=== PATIENT | female | born 1980 | race Hispanic/Latino ===

== ENCOUNTER 2019-12-03 16:12 | Inpatient (IN) | payer OTHER ==
[2019-12-03 16:33] LABS: #Lymphocytes 2.1 thou/uL (1.20-3.40); #Monocytes 0.4 thou/uL (0.11-0.59); #Neutrophils 5.5 thou/uL (1.40-6.50); %Basophils 0.3 % (0.0-1.0); %Eosinophils 0.6 % (0.0-10.0); %Lymphocytes 25.9 % (21.0-51.0); %Monocytes 5.3 % (0.0-10.0); %Neutrophils 67.9 % (42.0-75.0); Hemoglobin 10.3 g/dL (12.0-16.0); Mean Corpuscular HGB CONC 34.5 g/dL (32.0-36.0); Mean Corpuscular Hemoglobin 31.9 pg (27.0-31.0); Mean Corpuscular Volume 92.7 fL (78.0-98.0); Mean Platelet Volume 7.7 fL (7.4-10.4); Platelet Count 176 thou/uL (130-400); RBC Distribution Width 12.6 % (11.5-14.5); Red Blood Cell (RBC) Count 3.23 mill/uL (4.20-5.40); White Blood Cell (WBC) Count 8.1 thou/uL (4.8-10.8)
[2019-12-03 16:37] LABS: PTT 27.1 sec (22.9-36.1); Prothrombin Time 13.3 sec (12.0-14.7)
--- NOTE | 2019-12-03 16:40 | CT ---
CT head noncontrast HISTORY: Left-sided weakness. FINDINGS: A small hypodense focus is present within the right frontal white matter on image #21. Centered at the right parietal level is the area of most notable, yet still very subtle wedge-shaped decreased density extending through the cortical white matter. A tiny focus of increased density at the right basal ganglia is favored to represent dystrophic calci fication. There is no significant mass effect or shift of midline structures. Minimal mucosal thickening and fluid in the left maxillary sinus. IMPRESSION : Subtle abnormalities in the right parietal lobe and right frontal white matter concerning for an acut e ischemic event in the distribution of the right middle cerebral artery. Given the patient's symptoms, further evaluation is warranted. Please consider MRI for better characterization. Findings were called to Dr. Warren in the emergency department at 1633 hours Code CR.
[2019-12-03 16:44] LABS: ALT (SGPT) 26 U/L (8-55); AST (SGOT) 16 U/L (5-34); Albumin 4.3 g/dL (3.5-5.0); Alkaline Phosphatase 77 U/L (40-110); Anion Gap 13 mmol/L (10-20); BUN (Urea Nitrogen) 7 mg/dL (7.0-18.7); Bilirubin, Total 0.4 mg/dL (0.2-1.2); CK (CPK) 49 U/L (29-168); Calc. Creatinine Clearance 0 mL/min (70-130); Calcium 8.8 mg/dL (7.8-10.44); Carbon Dioxide 21 mmol/L (22-29); Chloride 109 mmol/L (98-107); Estimated GFR-MDRD 87; Globulin 2.6 g/dL (2.4-3.5); Glucose 87 mg/dL (70-105); Protein, Total 6.9 g/dL (6.0-8.3); Sodium 139 mmol/L (136-145)
--- NOTE | 2019-12-03 17:26 | CT ---
EXAM: CT ANGIOGRAM OF THE HEAD AND NECK CT perfusion INDICATION: Level 2 stroke. Left-sided numbness. COMPARISON: None TECHNIQUE: CT angiogram of the head and neck are performed in the axial plane. Three-dimensional reformatted renetta ges are submitted for interpretation. After performing the angiogram of the head and neck, perfusion CT was performed. FINDINGS: CTA OF THE HEAD WITH AND WITHOUT CONTRAST: POSTCONTRAST CT OF BRAIN: Subtle white matter hypodensities in the right stroud radiata subtle loss of haddad-white matter differ entiation in the right frontal lobe, near the vertex. Postcontrast soft tissue neck CT: Aerodigestive tract:Aerodigestive tract is patent. No mucosal abnormality. Sinuses: Adequate aeration. Orbits: Bilateral ocular lenses are appropriately located. Both globes are intact. Retrobulbar fat is preserved. Symmetric attenuation the optic nerves and ocular rectus muscles. Salivary glands:Symmetric attenuation Thyroid gland: Unremarkable Lymph nodes: No evidence of lymphadenopathy by size criteria. Paraspinal muscles: Symmetric attenuation of the sternocleidomastoid muscles. Appropriate attenuation of the paraspinal muscles. Cervical spine:Vertebral body height is maintained. No fracture. No significant central canal stenosi s or significant neural foraminal narrowing. Limited evaluation by technique. Upper mediastinum and lung apices: Chronic changes. CTA OF THE NECK WITH CONTRAST: Aorta: Appropriate enhancement and luminal diameter. Bovine origin of the carotid arteries. Right carotid artery: Appropriate enhancement and luminal diameter the origin of the carotid artery, common carotid artery, carotid bifurcation and internal carotid artery. Left carotid: Appropriate enhancement and luminal diameter the origin of the carotid artery, common c arotid artery, carotid bifurcation and internal carotid artery Subclavian arteries:Symmetric enhancement and luminal diameter Vertebral arteries:Patent throughout their course in the neck. CTA OF THE BRAIN: Intracranial internal carotid arteries:Appropriate enhancement and luminal diameter Anterior circulation: Abrupt termination with occlusion of the right M1 segment at its proximal aspec t. There is collateral flow which demonstrate appropriate enhancement of the proximal MCA branches. Left M1 segment, left MCA branches have appropriate enhancement and luminal diameter. Appropriate enh ancement and luminal diameter the A1 segments and proximal A2 segments. Intracranial vertebral arteries: Patent and symmetric. Posterior circulation: Both vertebral arteries supply normal caliber basilar artery. Right CHICKEN TENDER has a origin. Left P1 segment is unremarkable. CT PERFUSION: There is increased mean transit time in the right cerebrum, compatible with an MCA distribution. Bloo d volume is slightly decreased but is preserved in the right MCA distribution. Findings suggest a significant penumbra/salvageable brain. IMPRESSION: 1. 1. Occlusion of the right M1 segment thrombus. 2. There is increased mean transit time. However, blood volume appears to be maintained in the right MCA distribution suggesting a large penumbra, compatible with ischemia. 3. Results study discussed with Dr. Jose A duque and Dr. Warren 12/03/2019 5:25 PM Code CR Transcribed Date/Time: 12/03/2019 5:38 PM
--- NOTE | 2019-12-03 17:28 | RAD ---
Exam: Chest one view HISTORY:Left-sided facial weakness. Arm weakness and numbness. Visual field defect. Comparison: None FINDINGS: Cardiac silhouette: Normal Aorta: Unremarkable Pulmonary vessels: Normal Costophrenic angles: Clear LUNGS: No masses or consolidation. Pneumothorax: None Osseous abnormalities: None IMPRESSION: No acute cardiopulmonary process.
[2019-12-03] MEDS ORDERED: Ondansetron ODT 4 MG TAB SL PRN (19:08)
[2019-12-03] MEDS ORDERED: Acetaminophen 325 MG TAB PO PRN (19:08)
[2019-12-03] MEDS ORDERED: Ondansetron PF 4 MG/2 ML Vial IVP PRN ×2 (19:08→20:02)
[2019-12-03 19:51] LABS: Troponin I 0.011 ng/mL (< 0.028)
[2019-12-03] MEDS ORDERED: Ondansetron ODT 4 MG TAB PO PRN (20:02)
[2019-12-03] MEDS ORDERED: Aspirin 325 MG TAB PO SCH (20:15)
[2019-12-03] MEDS: Acetaminophen 325 MG TAB PO PRN (20:52)
[2019-12-03 22:52] VITALS: BMI 36.1
[2019-12-03 22:54] LABS: Troponin I Less than 0.010 ng/mL (< 0.028)
[2019-12-03] MEDS ORDERED: traMADol HCl 50 MG TAB PO SCH (23:30)
--- NOTE | 2019-12-03 23:42 | PDOC.FPRHP ---
- History of Present Illness Chief Complaint: Left sided weakness History of Present Illness: Patient is a 39 year old female with a history of CVA x 6, multiple TIAs and HTN who presents to the ED with her son with complains of left sided weakness since waking at 0630. The patient was scheduled to undergo a catheterizing for vascular stent placement in the brain at [facility] in [place] yesterday. She says the surgeon began the procedure but abandoned it due to thin vessels. She returned home and developed a headache described as all over pain and pressure at 10pm. The patient went to sleep shortly afterward and awoke with acute left sided facial droop, left arm weakness and left leg weakness at 0630. She says the weakness worsened during the day and she can no longer use her left arm. The patient's son denies slurring of speech but notes that his mother is not at her baseline in regards to speech pattern. The patient complains of left sided pain and tingling. She reports a headache rated a 10/10 that is not worsened with lights or noise and not improved with Ibuprofen and Advil. She also notes generalized body edema. She denies lightheadedness, dizziness, vision changes, chest pain, palpitations, SOB, abdominal pain, change in BMs, and dysuria. Patient's PCP and records are all at [facility] No records available for review. Patient is unaware of workup for clotting disorders. ED Course: Stroke alert activated in the ED. Dr. Lyons (neurosurgery) reviewed imaging and recommended admission to stroke unit with antiplatelet therapy and MRI in am. Vitals were stable. NIH 16. - Allergies/Adverse Reactions Allergies Allergy/AdvReac Type Severity Reaction Status Date / Time methyldopa Allergy Verified 12/04/19 00:04 - Home Medications Medication Instructions Recorded Confirmed Type Amlodipine [Norvasc] 10 mg PO DAILY 12/04/19 12/04/19 History Aspirin [Ecotrin] 81 mg PO DAILY 12/04/19 12/04/19 History Atorvastatin Calcium [Lipitor] 80 mg PO HS 12/04/19 12/04/19 History Folic Acid [Folvite] 1 mg PO DAILY 12/04/19 12/04/19 History Lisinopril [Zestril] 40 mg PO QAM 12/04/19 12/04/19 History Ticagrelor [Brilinta] 0.5 tab PO QAM 12/04/19 12/04/19 History levETIRAcetam [Keppra] 750 mg PO QAM 12/04/19 12/04/19 History - History PMHx: CVA x 6, multiple TIAs, HTN PSHx: Appendectomy, bilateral tubal ligation FHx: Father - possible CVA, otherwise unremarkable Social: Lives with and son. Denies tobacco use, alcohol use and drug use. - Review of Systems General: denies: fever/chills, night sweats, fatigue Eyes: denies: eye pain, vision changes ENT: denies: nasal congestion, rhinorrhea Respiratory: denies: cough, congestion, shortness of breath Cardiovascular: reports: edema. denies: chest pain, palpitation Gastrointestinal: denies: nausea, vomiting, abdominal pain Genitourinary: denies: dysuria, polyuria Skin: denies: rashes, jaundice Musculoskeletal: reports: pain. denies: stiffness Neurological: reports: numbness, weakness. denies: syncope, seizure - Vital signs BP: [125/75] HR: [98] Tmax: [98.9] Pox: [95]% on [RA] Wt: [84kg] - Physical Exam Constitutional: NAD, awake, alert and oriented HEENT: normocephalic and atraumatic, PERRLA, conjunctiva clear, MMM -HEENT: Patient would close eyes during exam for EOM. However, observed spontaneous, appropriate EOM during exam. Neck: supple, trachea midline Chest: no-tender to palpation, no lesions Heart: RRR, normal S1/S2, no murmurs/rubs/gallops, no edema Lungs: CTAB, no respiratory distress Abdomen: soft, non-tender, bowel sounds present -Musculoskeletal: Left upper extremity: Strength 0/5 Right upper extremity: Strength 5/5 Left lower extremity: Strength 3/5 Right lower extremity: Strength 5/5 -Neurological: Normal sensation. Left facial droop present - able to puff cheeks but not smile. Skin: no rash/lesions, no jaundice Heme/Lymphatic: no unusual bruising or bleeding FMR H&P: Results - Labs Result Diagrams: 12/04/19 03:52 12/03/19 16:22 Lab results: WBC 8.1 thou/uL (4.8-10.8) 08/31/20 16:22 Hgb 10.3 g/dL (12.0-16.0) L 12/03/19 16:22 Hct 29.9 % (36.0-47.0) L 12/03/19 16:22 MCV 92.7 fL (78.0-98.0) 12/03/19 16:22 Plt Count 176 thou/uL (130-400) 12/03/19 16:22 Neutrophils % 67.9 % (42.0-75.0) 12/03/19 16:22 Sodium 139 mmol/L (136-145) 12/03/19 16:22 Potassium 4.0 mmol/L (3.5-5.1) 12/03/19 16:22 Chloride 109 mmol/L (98-107) H 12/03/19 16:22 Carbon Dioxide 21 mmol/L (22-29) L 12/03/19 16:22 BUN 7 mg/dL (7.0-18.7) 12/03/19 16:22 Creatinine 0.74 mg/dL (0.6-1.1) 12/03/19 16:22 Glucose 87 mg/dL (70-105) 12/03/19 16:22 Calcium 8.8 mg/dL (7.8-10.44) 12/03/19 16:22 Total Bilirubin 0.4 mg/dL (0.2-1.2) 12/03/19 16:22 AST 16 U/L (5-34) 12/03/19 16:22 ALT 26 U/L (8-55) 12/03/19 16:22 Alkaline Phosphatase 77 U/L (40-110) 12/03/19 16:22 Creatine Kinase 49 U/L (29-168) 12/03/19 16:22 Serum Total Protein 6.9 g/dL (6.0-8.3) 12/03/19 16:22 Albumin 4.3 g/dL (3.5-5.0) 12/03/19 16:22 - EKG Interpretation EKG: NSR. No ST segment changes. - Radiology Interpretation Chest x-ray Status: report reviewed by me Additional comment: No acute cardiopulmonary process CT scan - head Status: report reviewed by me Additional comment: CT Brain showed subtle abnormality in R parietal lobe and R frontal white matter concerning for acute ischemic event in R MCA. Other Status: report reviewed by me Additional comment: CT Angio of Head/Neck showed occlusion of R CO segment thrombus, increased mean transit time with blood volume maintained in R MCA suggesting large penumbra. FMR H&P: A/P - Plan Acute CVA Hx CVA x 6 and multiple TIAs. Exam concerning for acute CVA due to new onset left facial droop and inability to move left arm. EKG showed NSR, no ST changes. CT Brain showed subtle abnormality in R parietal lobe and R frontal white matter concerning for acute ischemic event in R MCA. CT Angio of Head/ Neck showed occlusion of R CO segment thrombus, increased mean transit time with blood volume maintained in R MCA suggesting large penumbra. Dr. Lyons viewed imaging and recommended MRI in am. -Admit to stroke unit -Q4 neuro checks -MRI in am -Consult neurology in am -Restart home meds. Holding HTN meds. -A1C and lipid panel for risk stratification -Request medical records from [facility] HTN BP stable in 120s systolic -Permissive HTN -Holding home HTN meds PCP: [facility] Code: FULL DVT PPx: Lovenox Dispo: admit to stroke inpatient, expected LOS > 48 hours FMR H&P: Upper Level - Plan Date/Time: 12/03/19 9722 IChaya, have evaluated this patient and agree with findings/plan as outlined by spring intern resident. Pertinent changes/additions are listed here. 60 yo F with recurrent stroke is admitted for CVA with new deficit. Yesterday had procedure by neurosurgery at [facility] with hope to place stent, however this was reportedly unsuccessful. Last known normal recorded by ED was 0600 but with history being that patient was well, went to bed at 11pm and awoke with deficits. Patient's history has a different timeline as she said the procedure occurred today. First stroke was 06/2019 with all hospitalizations and care at [facility]. She is on aspirin and brilinta daily. Reports headache present since her surgery. Denies vision changes. VS: 98.5, 76, 119, 98% on RA, 113/64 PE: Gen: NAD, sitting up in bed, alert, responds appropriately to questions HEENT: Moist MM Heart: RRR, no murmurs Lungs: CTAB, no wheezing. No increased work of breathing Abd: soft, nontender, BS+ Ext: no cyanosis or edema Skin: no rashes Neuro: alert, RUE, RLE, and LLE all strength 5/5 and sensation intact. L sided facial droop, sensation intact to face, left sided neglect. L arm strength 0/5, flacid, hypersensitivity, painful to light touch. Speech slightly slurred. Pertinent Labs/Imaging: CT brain with acute ischemic changes in R MCA distribution CTA with occlusion of R M1 segment MCA thrombus, large penumbra compatible with ischemia EKG NSR Acute CVA of R MCA - Case was discussed between ED physician and Dr. Lyons and no intervention recommended - Patient is already on brilinta and ASA 81mg daily - Hx of recurrent CVAs, unsure what workup has been completed, but assume with number that anticoagulation workup etc has been done at some point. Request records from [facility] in morning - Lipids, a1c pending - MRI ordered - Consult neurology in the morning - PT/OT consulted, will likely need rehab - Permissive HTN for 24-48 hours, hold home BP meds for now Normocytic anemia - Unsure of baseline, recheck in am Diet: HH IVF: SL Ppx: Lovenox PCP: [facility] Attending: Clemente Dispo: admit to stroke unit inpatient, expected LOS >48h Addendum - Attending - Attending Attestation Date/Time: 12/03/19 7662 I personally evaluated the patient and discussed the management with Dr. Ceballos I agree with the History, Examination, Assessment and Plan documented above with any addition or exceptions noted below - 39 year old female with a history of CVA x 6, multiple TIAs and HTN who presents to the ED with her son with complains of left sided weakness since waking at 0630. The patient was scheduled to undergo a catheterizing for vascular stent placement in the brain at [facility] in [place] yesterday. She says the surgeon began the procedure but abandoned it due to thin vessels. She returned home and developed a headache described as all over pain and pressure at 10pm. The patient went to sleep shortly afterward and awoke with acute left sided facial droop, left arm weakness and left leg weakness at 0630. She says the weakness worsened during the day and she can no longer use her left arm. The patient's son denies slurring of speech but notes that his mother is not at her baseline in regards to speech pattern. The patient complains of left sided pain and tingling. She reports a headache rated a 10/10 that is not worsened with lights or noise and not improved with Ibuprofen. PMH/PSH/Meds/SH reviewed and agree with resident's documentation. Afebrile VSS Exam repeated by me and agree with resident's documentation. Labs: H/H=10.3/29.9, Hvq=586, Pl=052, K=4.0, Bs=812, CO2=21, BUN/ Cr=7/0.74, Gluc=87, AST/ALT=16/26, trop I=0.011. CT brain- subtle abnormalities right parietal lobe and right frontal. CTA brain- occulsion of right M1 segment of MCA; blood volume appears to be maintained in R MCA distribution suggesting a large penumbra. A/P: 1) R MCA CVA -Admit to stroke. Case d/w Dr. Lyons by ER MD and he felt changes appeared to be chronic and no intervention needed at this time. Will obtain records from [facility] to determine extent of workup to date. Consult neurology. MRI in AM. PT/OT/ST consult.
[2019-12-04 04:45] LABS: #Eosinphils 0.1 thou/uL (0.0-0.7); #Lymphocytes 2.5 thou/uL (1.20-3.40); #Monocytes 0.4 thou/uL (0.11-0.59); #Neutrophils 4.2 thou/uL (1.40-6.50); %Basophils 0.3 % (0.0-1.0); %Eosinophils 1.6 % (0.0-10.0); %Lymphocytes 34.7 % (21.0-51.0); %Monocytes 6.1 % (0.0-10.0); %Neutrophils 57.3 % (42.0-75.0); Hemoglobin 9.2 g/dL (12.0-16.0); Mean Corpuscular HGB CONC 34.7 g/dL (32.0-36.0); Mean Platelet Volume 8.2 fL (7.4-10.4); Platelet Count 154 thou/uL (130-400); RBC Distribution Width 12.6 % (11.5-14.5); Red Blood Cell (RBC) Count 2.88 mill/uL (4.20-5.40); White Blood Cell (WBC) Count 7.3 thou/uL (4.8-10.8)
[2019-12-04 04:50] LABS: Hemoglobin A1c 4.6 % (4.0-6.0)
[2019-12-04 05:34] LABS: Cardiac Risk 2.8 (Less than 4.5)
--- NOTE | 2019-12-04 07:31 | PDOC.FM ---
- Subjective Subjective: Doing well this morning, no acute events overnight. No concerns for this morning. Has continued complete LUE weakness, but LLE is much improved. Denies any COTE, CP, SOB, vision changes, n/v, diarrhea/constipation. Eager to work with PT today. - Objective MAR Reviewed: Yes Vital Signs & Weight: Vital Signs (12 hours) Temp Pulse Resp BP Pulse Ox 12/04/19 04:00 98.1 F 79 14 114/69 99 12/03/19 23:09 98.2 F 62 17 110/57 L 96 12/03/19 20:02 96 Weight Weight 84.005 kg I&O: 12/03/19 12/04/19 12/05/19 06:59 06:59 06:59 Output Total 550 Balance -550 Result Diagrams: 12/04/19 03:52 12/03/19 16:22 EKG Reviewed by me: Yes (Tele: NSR) Phys Exam - Physical Examination Constitutional: NAD (resting comfortably in bed) HEENT: moist MMs Neck: supple Respiratory: no wheezing, no rales, no rhonchi, clear to auscultation bilateral Cardiovascular: RRR, no significant murmur, no rub Gastrointestinal: soft, non-tender, no distention, positive bowel sounds Musculoskeletal: no edema Neurological: normal sensation (in all 4 ext) Left-sided facial droop. 0/5 strength LUE. 4+/5 LLE. 5/5 RUE and RLE Skin: no rash Dx/Plan (1) CVA (cerebral vascular accident) Code(s): I63.9 - CEREBRAL INFARCTION, UNSPECIFIED Status: Acute Qualifiers: Precerebral and cerebral artery: middle cerebral artery Laterality of affected vessel: right - Plan Plan: 39yo F with h/o multiple TIA's, HTN presents for acute R MCA CVA #Acute CVA of R MCA - Last seen normal PM of 12/01, first noticed sxs AM of 12/02 - CTA with occlusion of M1 branch of R MCA with large pneumbra - MRI pending - Cont home ASA and brilinta - Hx of recurrent CVAs/TIAs with workup at [facility], will request records. Had attempted stent placement in [place] on 12/01 but was abandoned due to severe vessel stenosis per patient - Lipids, a1c normal. TSH pending - Consult neurology, apprec recs - PT/OT consulted, will likely need rehab - Permissive HTN for 24-48 hours, hold home BP meds for now #Normocytic anemia - Unsure of baseline. Will order iron studies, B12/folate Code: Full Diet: HH IVF: SL Ppx: Lovenox PCP: [facility] Dispo: Acute CVA. MRI pending. Awaiting records from [facility]. Neurology consulted. Anticipate LOS > 48hours. Addendum - Attending - Attending Attestation Date/Time: 12/04/19 4771 I personally evaluated the patient and discussed the management with Dr. Powers. I agree with the History, Examination, Assessment and Plan documented above with any addition or exceptions noted below. Patient with stable neuro deficits. Appears she has suffered another CVA. She will need neuro input, as well as MRI and TTE with agitated saline study. She is very young to have all these vascular issues. Requesting records from [facility] regarding previous workup but she may need hypercoag workup. Therapy services consult.
[2019-12-04] MEDS ORDERED: Aspirin 325 mg Enteric Coated Tablet PO SCH (09:00)
--- NOTE | 2019-12-04 10:08 | CT ---
EXAM: CT ANGIOGRAM OF THE HEAD AND NECK CT perfusion INDICATION: Level 2 stroke. Left-sided numbness. COMPARISON: None TECHNIQUE: CT angiogram of the head and neck are performed in the axial plane. Three-dimensional reformatted renetta ges are submitted for interpretation. After performing the angiogram of the head and neck, perfusion CT was performed. FINDINGS: CTA OF THE HEAD WITH AND WITHOUT CONTRAST: POSTCONTRAST CT OF BRAIN: Subtle white matter hypodensities in the right stroud radiata subtle loss of haddad-white matter differ entiation in the right frontal lobe, near the vertex. Postcontrast soft tissue neck CT: Aerodigestive tract:Aerodigestive tract is patent. No mucosal abnormality. Sinuses: Adequate aeration. Orbits: Bilateral ocular lenses are appropriately located. Both globes are intact. Retrobulbar fat is preserved. Symmetric attenuation the optic nerves and ocular rectus muscles. Salivary glands:Symmetric attenuation Thyroid gland: Unremarkable Lymph nodes: No evidence of lymphadenopathy by size criteria. Paraspinal muscles: Symmetric attenuation of the sternocleidomastoid muscles. Appropriate attenuation of the paraspinal muscles. Cervical spine:Vertebral body height is maintained. No fracture. No significant central canal stenosi s or significant neural foraminal narrowing. Limited evaluation by technique. Upper mediastinum and lung apices: Chronic changes. CTA OF THE NECK WITH CONTRAST: Aorta: Appropriate enhancement and luminal diameter. Bovine origin of the carotid arteries. Right carotid artery: Appropriate enhancement and luminal diameter the origin of the carotid artery, common carotid artery, carotid bifurcation and internal carotid artery. Left carotid: Appropriate enhancement and luminal diameter the origin of the carotid artery, common c arotid artery, carotid bifurcation and internal carotid artery Subclavian arteries:Symmetric enhancement and luminal diameter Vertebral arteries:Patent throughout their course in the neck. CTA OF THE BRAIN: Intracranial internal carotid arteries:Appropriate enhancement and luminal diameter Anterior circulation: Abrupt termination with occlusion of the right M1 segment at its proximal aspec t. There is collateral flow which demonstrate appropriate enhancement of the proximal MCA branches. Left M1 segment, left MCA branches have appropriate enhancement and luminal diameter. Appropriate enh ancement and luminal diameter the A1 segments and proximal A2 segments. Intracranial vertebral arteries: Patent and symmetric. Posterior circulation: Both vertebral arteries supply normal caliber basilar artery. Right HEALTH ADVISOR has a origin. Left P1 segment is unremarkable. CT PERFUSION: There is increased mean transit time in the right cerebrum, compatible with an MCA distribution. Bloo d volume is slightly decreased but is preserved in the right MCA distribution. Findings suggest a significant penumbra/salvageable brain. IMPRESSION: 1. 1. Occlusion of the right M1 segment thrombus. 2. There is increased mean transit time. However, blood volume appears to be maintained in the right MCA distribution suggesting a large penumbra, compatible with ischemia. 3. Results study discussed with Dr. JoseA duque and Dr. Warren 12/03/2019 5:25 PM Code CR Transcribed Date/Time: 12/04/2019 10:08 AM
--- NOTE | 2019-12-04 10:15 | MRI ---
MRI BRAIN NONCONTRAST: DATE: 12/04/2019 HISTORY: 39-year-old female with acute stroke COMPARISON: No prior brain MRIs FINDINGS: There are numerous foci of cytotoxic edema in the right cerebral hemisphere with restricted diffusion , representing acute infarctions. These include a moderately large, contiguous region involving the cortex of large lateral portion of right temporal lobe and right parietal lobe, and right upper poste rior frontal lobe. Additionally, there is a very large number of small and tiny such foci extensively involving the rest of the right frontal lobe, including deep and subcortical white matter (stroud radiata and centrum semiovale) and cortex. There are additional small such foci involving right paramedian deep nuclei, including far anterior m edial portion of right thalamus. No hemorrhagic transformation. No midline shift or significant mass effect. Ventricles are normal in size and configuration. No extra-axial fluid collection. IMPRESSION: Acute infarctions involving right middle cerebral artery territory, consisting of a moderately large confluent region, plus innumerable small and tiny foci. Together, they are estimated to involve approximately 30-50% volume of the right middle cerebral artery territory.
[2019-12-04] MEDS: levETIRAcetam 500 mg/5 ml Oral Solution PO SCH (10:47)
[2019-12-04] MEDS: Aspirin 81 mg Enteric Coated Tablet PO SCH (10:51)
[2019-12-04] MEDS: TICAGRELOR 90 MG TABLET PO SCH (10:51)
[2019-12-04] MEDS: Enoxaparin Sodium 40 MG/0.4 ML SYRINGE SC SCH (10:51)
[2019-12-04] MEDS: Folic Acid 1 MG TAB PO SCH (10:55)
[2019-12-04] MEDS: Acetaminophen 325 MG TAB PO PRN ×3 (10:55→23:41)
[2019-12-04 11:53] LABS: Iron Binding Capacity, Total 283 mcg/dL (265-497)
[2019-12-04 11:54] LABS: Iron 41 ug/dL (50-170)
[2019-12-04 11:57] LABS: Ferritin 137.42 ng/mL (10-291); Thyroid Stimulating Hormone 0.2482 uIU/mL (0.35-4.94)
[2019-12-04 12:30] LABS: SARS-CoV-2 MS2 Positive; SARS-CoV-2 N Gene Negative; SARS-CoV-2 S Gene Negative; SARS-CoV-2 by NAA Not Detected (NotDetected); SARS-CoV-2 orf1ab Negative
--- NOTE | 2019-12-04 17:13 | CON ---
DATE OF CONSULTATION: 12/04/2019 CONSULTING PHYSICIAN: [facility]. 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 PLAN: I agree with your current treatment plan with aspirin and Lipitor. HISTORY OF PRESENT ILLNESS: Ms. Briceño is a 39-year-old female, who apparently was in [place]. Prior to this admission, she had an endovascular procedure that was aborted secondary to "her vessel leija were too thin." She returned home and went to sleep. Upon awakening, she found that she had left-sided weakness. She is brought into the hospital for evaluation. Her CT angiogram revealed a right M1 segment occlusion. Her MRI of the brain shows patchy areas of ischemia involving the right MCA territory. Her H and H were low at 10/29. Her cholesterol ratio was 2.8. She had an echocardiogram done, which showed a 50% to 55% ejection fraction. She reports some headache and continued weakness on the left. She denies a past history of TIA. ALLERGIES: METHYLDOPA. SOCIAL HISTORY: No tobacco or alcohol. PAST MEDICAL HISTORY: Hypertension, hyperlipidemia. PAST SURGICAL HISTORY: Appendectomy, tubal ligation. MEDICATIONS: List was reviewed. REVIEW OF SYSTEMS: Ten-system review of systems is otherwise negative. PHYSICAL EXAMINATION: VITAL SIGNS: Blood pressure 112/64, pulse 82, respirations 18, and temperature 98.9. HEENT: Pupils equal and reactive. Conjunctivae clear. Oropharynx clear. NECK: Supple. EXTREMITIES: No cyanosis or edema. ABDOMEN: Soft and nontender. SKIN: Clear. NEUROLOGIC: She was alert and cooperative. Her speech was fluent and clear. There was a left facial droop present. She had no movement in the left upper extremity. She had antigravity movement in the left leg. Sensation was intact in the arm and leg to light touch. Gait was not tested. Plantar response was upgoing on the left and downgoing on the right. No abnormal movements were seen. LABORATORY DATA: EKG showed normal sinus rhythm. Laboratory studies were reviewed. SUMMARY: This is an unfortunate 39-year-old woman, who suffered a postprocedural stroke. This is likely due to thromboembolus from catheterization causing endovascular injury, statistically this occurs in about 2% of catheterizations. I agree with your management. Should need to go to rehab. Job ID: [id number]
[2019-12-04] MEDS: Atorvastatin Calcium 40 MG TAB PO SCH (20:19)
--- NOTE | 2019-12-05 07:15 | PDOC.FM ---
- Subjective Subjective: Doing well this morning, no acute events overnight. In good spirits. Worked with PT yesterday and has increased mobility of left upper ext as compared to previous day. Denies any pain, CP, SOB, n/v, diarrhea/constipation, or new neurologic deficits. Eager for discharge. States no family history of CKD, hypercoag, VTE/PE, autoimmune diseases, or other significant family history. - Objective MAR Reviewed: Yes Vital Signs & Weight: Vital Signs (12 hours) Temp Pulse Resp BP Pulse Ox 12/05/19 04:00 98.6 F 77 16 120/63 95 12/05/19 03:42 97 12/04/19 23:59 100.7 F H 81 16 129/62 97 Weight Admit Weight 84.005 kg Weight 84.005 kg I&O: 12/04/19 12/05/19 12/06/19 06:59 06:59 06:59 Intake Total 240 Output Total 550 Balance -550 240 Result Diagrams: 12/04/19 03:52 12/03/19 16:22 EKG Reviewed by me: Yes (Tele: NSR) Phys Exam - Physical Examination Constitutional: NAD (resting comfortably, good spirits) HEENT: moist MMs Neck: supple Respiratory: no wheezing, no rales, no rhonchi, clear to auscultation bilateral Cardiovascular: RRR, no significant murmur, no rub Gastrointestinal: soft, non-tender, no distention, positive bowel sounds Musculoskeletal: no edema Neurological: normal sensation 3/5 strength LUE, 4/5 strength LLE. 5/5 strength RUE/RLE L-facial droop and tongue deviation Psychiatric: normal affect, A&O x 3 Skin: no rash Dx/Plan (1) CVA (cerebral vascular accident) Code(s): I63.9 - CEREBRAL INFARCTION, UNSPECIFIED Status: Acute Qualifiers: Precerebral and cerebral artery: middle cerebral artery Laterality of affected vessel: right - Plan Plan: 39yo F with h/o multiple TIA's, HTN presents for acute R MCA CVA #Acute CVA of R MCA - Last seen normal PM of 12/01, first noticed sxs AM of 12/02 - CTA with occlusion of M1 branch of R MCA with large pneumbra - MRI with many tiny foci of infarcts as well as large MCA infarct - Cont home ASA and brilinta - Hx of recurrent CVAs/TIAs with workup at [facility]. Had attempted stent placement in [place] on 12/01 but was abandoned due to "thin vessels" per patient. Possible MCA secondary to angiography. Awaiting records from [facility]. Consider autoimmune or hypercoag workup if not previously performed. No family history. - Lipids, a1c normal. TSH elevated with normal T4. - Consult neurology, cont current management, apprec recs - PT/OT consulted, will likely need rehab - Out of permissive HTN window, however BP has remained stable. Will cont to monitor. #Normocytic anemia - Unsure of baseline. Iron studies, B12, folate all WNL. - Possibly anemia of chronic inflammation. Code: Full Diet: HH IVF: SL Ppx: Lovenox PCP: [facility] Dispo: Acute CVA. Awaiting records from [facility]. Neurology consulted, apprec recs. Consider hypercoag/autoimmune workup. Discharge to rehab when appropriate. Anticipate LOS > 48hours. Addendum - Attending - Attending Attestation Date/Time: 12/05/19 0902 I personally evaluated the patient and discussed the management with Dr. [place]. I agree with the History, Examination, Assessment and Plan documented above with any addition or exceptions noted below. Patient overall doing well. Suspect her CVA was post-procedural in nature. She is otherwise medically optimized. Awaiting rehab placement and should be stable to be discharged whenever she is accepted.
[2019-12-05] MEDS: levETIRAcetam 500 mg/5 ml Oral Solution PO SCH (09:14)
[2019-12-05] MEDS: Aspirin 81 mg Enteric Coated Tablet PO SCH (09:15)
[2019-12-05] MEDS: Enoxaparin Sodium 40 MG/0.4 ML SYRINGE SC SCH (09:15)
[2019-12-05] MEDS: Folic Acid 1 MG TAB PO SCH (09:16)
[2019-12-05] MEDS: TICAGRELOR 90 MG TABLET PO SCH (09:16)
[2019-12-05] MEDS: Acetaminophen 325 MG TAB PO PRN ×3 (09:22→20:26)
[2019-12-05] MEDS: Atorvastatin Calcium 40 MG TAB PO SCH (20:26)
[2019-12-05 23:24] LABS: Bilirubin Negative (Negative); Blood, Urine 2+ (Negative); Clarity Clear (Clear); Glucose, Urine (Dipstick) Normal (Negative); Ketone, Urine Negative (Negative); Leukocyte 500 Leu/uL (Negative); Nitrite Negative (Negative); Protein, Urine (Dipstick) Negative (Neg-Trace); RBC/HPF 21-50 HPF (0-3); Specific Gravity, Urine 1.014 (1.002-1.036); Urobilinogen Normal mg/dL (Less than 2); WBC/HPF 21-50 HPF (0-3); pH, Urine 6.5 (5.0-9.0)
[2019-12-05 23:25] LABS: Bacteria/HPF 3+ HPF (None Seen)
[2019-12-05] MEDS ORDERED: cefTRIAXone\\ROCEPHIN 1 GM in Sodium Chloride 0.9% 100 ML IVPB SCH (23:59)
[2019-12-06] MEDS: Acetaminophen 325 MG TAB PO PRN ×3 (02:45→15:51)
--- NOTE | 2019-12-06 07:15 | PDOC.FM ---
- Subjective Subjective: Doing well. Overnight have fever, suprapubic pain, body aches. Found to have UTI and started on abx. This morning states she is doing well. She is weak and sore all overnight. Denies dysuria, n/v. Endorses suprapubic pain. Eager for discharge to rehab. - Objective MAR Reviewed: Yes Vital Signs & Weight: Vital Signs (12 hours) Temp Pulse Resp BP Pulse Ox 12/06/19 04:25 99.4 F 99 18 120/73 97 12/05/19 23:23 100.8 F H 104 H 20 133/74 95 12/05/19 20:16 101.5 F H 107 H 20 131/73 99 Weight Admit Weight 84.005 kg Weight 84.005 kg I&O: 12/05/19 12/06/19 12/07/19 06:59 06:59 06:59 Intake Total 240 710 Balance 240 710 Result Diagrams: 12/06/19 09:00 12/03/19 16:22 Phys Exam - Physical Examination Constitutional: NAD (resting comfortably, NAD) HEENT: moist MMs Neck: supple Respiratory: no wheezing, no rales, no rhonchi, clear to auscultation bilateral Cardiovascular: RRR, no significant murmur, no rub Gastrointestinal: soft, no distention, positive bowel sounds mild suprapubic TTP Musculoskeletal: no edema L-sided facial droop. LUE 1/5, LLE 3/5 with decreased effort. Normal sensation. RLE and RUE 5/5 Psychiatric: normal affect, A&O x 3 Dx/Plan (1) CVA (cerebral vascular accident) Code(s): I63.9 - CEREBRAL INFARCTION, UNSPECIFIED Status: Acute Qualifiers: Precerebral and cerebral artery: middle cerebral artery Laterality of affected vessel: right - Plan Plan: 39yo F with h/o multiple TIA's, HTN presents for acute R MCA CVA #Acute CVA of R MCA - Last seen normal PM of 12/01, first noticed sxs AM of 12/02 - CTA with occlusion of M1 branch of R MCA with large pneumbra - MRI with many tiny foci of infarcts as well as large MCA infarct - Cont home ASA and brilinta - Hx of recurrent CVAs/TIAs with workup at [facility]. Had attempted stent placement in [place] on 12/01 but was abandoned due to "thin vessels" per patient. Possible MCA secondary to angiography. Awaiting records from [facility]. Consider autoimmune or hypercoag workup if not previously performed. No family history. - Lipids, a1c normal. TSH elevated with normal T4. - Consulted neurology, cont current management, apprec recs - PT/OT consulted, will benefit from rehab - Out of permissive HTN window, however BP has remained stable. Will cont to monitor. #UTI - UA 3+ bacteria, 21-50WBC, 500LE - Fever and tachycardia overnight - Rocephin (12/04) - Will follow UCx #Normocytic anemia - Unsure of baseline. Iron studies, B12, folate all WNL. - Possibly anemia of chronic inflammation. Code: Full Diet: HH IVF: SL Ppx: Lovenox PCP: [facility] Dispo: Acute CVA. Awaiting records from [facility]. Neurology consulted, apprec recs. Consider hypercoag/autoimmune workup. Medically ready for Discharge to rehab. Anticipate LOS > 48hours. Addendum - Attending - Attending Attestation Date/Time: 12/06/19 4716 I personally evaluated the patient and discussed the management with Dr. [place]. I agree with the History, Examination, Assessment and Plan documented above with any addition or exceptions noted below. Patient overall stable. She did have fever overnight, UA c/w possible UTI. Bloodwork today. Continue Rocephin, awaiting cultures. Continue therapy, awaiting acceptance at rehab.
[2019-12-06 09:11] LABS: #Lymphocytes 1.2 thou/uL (1.20-3.40); #Monocytes 0.7 thou/uL (0.11-0.59); %Basophils 0.1 % (0.0-1.0); %Eosinophils 0.3 % (0.0-10.0); %Lymphocytes 13.2 % (21.0-51.0); %Monocytes 7.9 % (0.0-10.0); %Neutrophils 78.5 % (42.0-75.0); Hemoglobin 11.4 g/dL (12.0-16.0); Mean Corpuscular Hemoglobin 31.1 pg (27.0-31.0); Mean Corpuscular Volume 91.6 fL (78.0-98.0); Platelet Count 187 thou/uL (130-400); RBC Distribution Width 12.5 % (11.5-14.5); Red Blood Cell (RBC) Count 3.65 mill/uL (4.20-5.40); White Blood Cell (WBC) Count 8.9 thou/uL (4.8-10.8)
[2019-12-06] MEDS: Aspirin 81 mg Enteric Coated Tablet PO SCH (09:12)
[2019-12-06] MEDS: levETIRAcetam 500 mg/5 ml Oral Solution PO SCH (09:13)
[2019-12-06] MEDS: Enoxaparin Sodium 40 MG/0.4 ML SYRINGE SC SCH (09:13)
[2019-12-06] MEDS: TICAGRELOR 90 MG TABLET PO SCH (09:14)
[2019-12-06] MEDS: Folic Acid 1 MG TAB PO SCH (09:17)
[2019-12-06 13:11] VITALS: BP 115/62; TEMP 99.4
--- NOTE | 2019-12-07 13:02 | DIS ---
DATE OF ADMISSION: 12/03/2019 DATE OF DISCHARGE: 12/06/2019 RESIDENT: Robbin Poewrs MD ADMITTING ATTENDING: Osiris Cornejo MD DISCHARGE ATTENDING: Alberto Cedillo MD CONSULTS: Neurology, Lorenzo Irene MD PROCEDURES: 1. CTA head and neck performed on 12/03/2019, demonstrating occlusion of the right M1 segment thrombus. Increased mean transit time suggestive of a large penumbra in the right MCA distribution compatible with ischemia. 2. Brain CT on 12/03/2019, demonstrating subtle abnormalities in the right parietal lobe and right frontal white matter concerning for an acute ischemic event in the distribution of the right middle cerebral artery. 3. Chest x-ray on 12/03/2019, demonstrating no acute cardiopulmonary process. 4. Echocardiogram on 12/04/2019, demonstrating an ejection fraction of 55% to 60 %. No [id number] shunt by contrast bubble exam noted. 5. Brain MRI 12/04/2019, demonstrating acute infarcts involving right middle cerebral artery territories of a moderately large MCA region plus innumerable small and tiny foci. Together they are estimated to involve less than 30% to 50% volume of the right MCA territory. PRIMARY DIAGNOSES: 1. Acute cerebrovascular accident of right middle cerebral artery. 2. Urinary tract infection. SECONDARY DIAGNOSIS: Normocytic anemia. DISCHARGE MEDICATIONS: 1. Aspirin 81 mg p.o. daily. 2. Folic acid 1 mg p.o. daily. 3. Atorvastatin 80 mg p.o. at bedtime. 4. Keppra 750 mg p.o. q.a.m. 5. Brilinta 90 mg 1/2 tablet p.o. q.a.m. 6. Rocephin 1 g q.24 hours for four days. DISCONTINUED MEDICATIONS: 1. Lisinopril 40 mg p.o. q.a.m. 2. Norvasc 10 mg p.o. daily. HISTORY OF PRESENT ILLNESS AND HOSPITAL COURSE: The patient is a 39-year-old female with history of multiple TIAs and CVAs, who presented to the ED with acute complaint of left-sided weakness since awakening at 0630 hours. The patient had an intra-arterial angiography of the brain at [facility] in [place] the day prior to presentation and stated that the surgeon was able to begin the procedure, but had to abandon it due to "thin vessels." The patient then went home and went to bed. She awoke the following morning with left-sided facial droop, left upper and lower extremity weakness. This weakness worsened throughout the day and to the point that she could no longer use her left arm. She then presented to the emergency department for further evaluation and management. In the ED, she had a stroke alert called with an NIH stroke scale of 16. CTA and CT head were ordered as per above and Neurosurgery, Dr. Lyons was notified, who reviewed imaging and recommended admission to the stroke unit with medical management and MRI. On the floor, the patient's weakness improved and MRI was subsequently obtained with findings per above. An echocardiogram with bubble study was negative. Throughout her hospitalization, the patient was monitored on telemetry without any acute events and worked with Physical Therapy and Occupational Therapy. Neurology, Dr. Irene was consulted, who evaluated the patient and recommended continued medical management and follow up with her neurologist and neurosurgeon in [place] for further workup of recurrent CVAs, TIAs. Records were attempted to be obtained from [facility]; however, after multiple attempts were never sent over. It would be recommended the patient pursue a hypercoagulability and/or autoimmune workup if not previously performed and if indicated. The patient denied any family history or personal history of autoimmune or hypercoagulable disorders. On the final night of hospitalization, the patient did spike a fever and complained of suprapubic pain. She was found to have a UA that was dirty. Subsequently started on Rocephin and urine culture was obtained. The patient's vitals remained stable and a repeat CBC was unremarkable with a mild left shift. The patient had no CVA tenderness. Vitals continued to remain stable and procalcitonin was negative. Rehab was consulted, who accepted the patient for continued inpatient rehab for medical management and continued physical and occupational therapy. At the time of discharge, the patient was doing very well. Her strength had improved in her left lower extremity to 4/5 and her left upper extremity was 3/5 strength. She still experienced left-sided facial droop. Discharge plan was discussed with the patient, who voiced agreement and understanding of the discharge plan, was eager to go to rehab. DISPOSITION: Stable. DISCHARGE INSTRUCTIONS: 1. Location: Inpatient rehab. 2. Diet: Heart healthy. 3. Activity: As tolerated. 4. Follow up: The patient will follow up with primary care physician within one week of discharge from rehab. The patient also to follow up with her neurologist and neurosurgeon in [place] within one week of discharge from rehab. Job ID: [id number] [id number]
== END 2019-12-06 17:05 | DRG 91 ==
LOC: ERS 16:12 → 2SE 19:06
PROVIDERS: ADMIT Family Medicine; ATTEND Family Medicine
DX: I97.821 Postprocedural cerebrovascular infarction following other surgery (principal); I63.411 Cerebral infarction due to embolism of right middle cerebral artery; G81.94 Hemiplegia, unspecified affecting left nondominant side; N39.0 Urinary tract infection, site not specified; Z20.828 Contact with and (suspected) exposure to other viral communicable diseases; I10 Essential (primary) hypertension; D64.9 Anemia, unspecified; R29.716 NIHSS score 16; R40.2412 Glasgow coma scale score 13-15, at arrival to emergency department; E78.5 Hyperlipidemia, unspecified; Z88.8 Allergy status to other drugs, medicaments and biological substances; Z79.82 Long term (current) use of aspirin; Z86.73 Personal history of transient ischemic attack (TIA), and cerebral infarction without residual deficits; Z90.49 Acquired absence of other specified parts of digestive tract; Z98.51 Tubal ligation status; Y83.8 Other surgical procedures as the cause of abnormal reaction of the patient, or of later complication, without mention of misadventure at the time of the procedure
CPT/HCPCS: 0042T; 36415; 36416; 36600; 70450; 70496; 70498; 70551; 71045; 80053; 80061; 81001; 82550; 82607; 82728; 82746; 83036; 83540; 83550; 84145; 84439; 84443; 84484; 85025; 85610; 85652; 85730; 86140; 87040; 87086; 87635; 93005; 93306; J0696; J1650; J2405; J3490; U0003

== ENCOUNTER 2020-01-25 14:31 | Emergency (ER) | payer OTHER ==
[2020-01-25 15:21] LABS: #Basophils 0.1 thou/uL (0.0-0.2); #Eosinphils 0.1 thou/uL (0.0-0.7); #Lymphocytes 1.9 thou/uL (1.20-3.40); #Monocytes 0.3 thou/uL (0.11-0.59); #Neutrophils 4.1 thou/uL (1.40-6.50); %Basophils 1.2 % (0.0-1.0); %Lymphocytes 29.1 % (21.0-51.0); %Monocytes 4.5 % (0.0-10.0); %Neutrophils 63.2 % (42.0-75.0); Hemoglobin 14.3 g/dL (12.0-16.0); Mean Corpuscular Hemoglobin 31.9 pg (27.0-31.0); Mean Corpuscular Volume 88.6 fL (78.0-98.0); Mean Platelet Volume 7.7 fL (7.4-10.4); Platelet Count 189 thou/uL (130-400); RBC Distribution Width 13.1 % (11.5-14.5); Red Blood Cell (RBC) Count 4.48 mill/uL (4.20-5.40); White Blood Cell (WBC) Count 6.5 thou/uL (4.8-10.8)
[2020-01-25 15:40] LABS: ALT (SGPT) 23 U/L (8-55); AST (SGOT) 18 U/L (5-34); Albumin 4.4 g/dL (3.5-5.0); Alkaline Phosphatase 89 U/L (40-110); Anion Gap 13 mmol/L (10-20); BUN (Urea Nitrogen) 10 mg/dL (7.0-18.7); Bilirubin, Total 0.7 mg/dL (0.2-1.2); Calc. Creatinine Clearance 0 mL/min (70-130); Calcium 9.5 mg/dL (7.8-10.44); Carbon Dioxide 27 mmol/L (22-29); Chloride 104 mmol/L (98-107); Estimated GFR-MDRD 86; Globulin 3.3 g/dL (2.4-3.5); Glucose 94 mg/dL (70-105); Magnesium 1.8 mg/dL (1.6-2.6); Potassium 3.3 mmol/L (3.5-5.1); Protein, Total 7.7 g/dL (6.0-8.3); Sodium 141 mmol/L (136-145)
[2020-01-25] MEDS ORDERED: Labetalol HCl 100 MG/20 ML VIAL ONE (16:04)
== END 2020-01-25 16:45 | disposition home or self-care (01) ==
LOC: ERS 14:31
DX: I10 Essential (primary) hypertension (principal); E78.5 Hyperlipidemia, unspecified; Z79.899 Other long term (current) drug therapy; Z79.82 Long term (current) use of aspirin
CPT/HCPCS: 80053; 83735; 85025; 96374

== ENCOUNTER 2020-08-26 15:41 | Inpatient (IN) | payer OTHER ==
[~2020-08-26 15:41] MED LIST: Iopamidol-370 76% 500 ML 1 ML ONE
[2020-08-26 16:21] LABS: #Eosinphils 0.2 thou/uL (0.0-0.7); #Lymphocytes 1.8 thou/uL (1.20-3.40); #Monocytes 0.4 thou/uL (0.11-0.59); #Neutrophils 4.5 thou/uL (1.40-6.50); %Basophils 0.2 % (0.0-1.0); %Eosinophils 2.4 % (0.0-10.0); %Monocytes 5.1 % (0.0-10.0); %Neutrophils 66.3 % (42.0-75.0); Hemoglobin 15.5 g/dL (12.0-16.0); Mean Corpuscular HGB CONC 34.7 g/dL (32.0-36.0); Mean Corpuscular Hemoglobin 31.4 pg (27.0-31.0); Mean Corpuscular Volume 90.4 fL (78.0-98.0); Mean Platelet Volume 8.2 fL (7.4-10.4); Platelet Count 200 thou/uL (130-400); RBC Distribution Width 12.7 % (11.5-14.5); Red Blood Cell (RBC) Count 4.93 mill/uL (4.20-5.40); White Blood Cell (WBC) Count 6.9 thou/uL (4.8-10.8)
[2020-08-26 16:34] LABS: INR-International Normal Ratio 0.9; PTT 28.3 sec (22.9-36.1); Prothrombin Time 12.6 sec (12.0-14.7)
[2020-08-26 16:42] LABS: ALT (SGPT) 31 U/L (8-55); AST (SGOT) 24 U/L (5-34); Albumin 4.6 g/dL (3.5-5.0); Alkaline Phosphatase 117 U/L (40-110); Anion Gap 15 mmol/L (10-20); BUN (Urea Nitrogen) 10 mg/dL (7.0-18.7); Bilirubin, Total 0.5 mg/dL (0.2-1.2); Calc. Creatinine Clearance 0 mL/min (70-130); Calcium 9.9 mg/dL (7.8-10.44); Carbon Dioxide 18 mmol/L (22-29); Chloride 110 mmol/L (98-107); Glucose 106 mg/dL (70-105); Protein, Total 8.6 g/dL (6.0-8.3); Sodium 139 mmol/L (136-145)
[2020-08-26] MEDS ORDERED: Aspirin Chewable 81 MG TAB ONE (16:46)
[2020-08-26 20:40] VITALS: BMI 39.9
[2020-08-26] MEDS ORDERED: hydrALAZINE 20 MG/ML VIAL SLOW IVP PRN (22:51)
[2020-08-26] MEDS ORDERED: Acetaminophen 325 MG TAB PO PRN (22:51)
[2020-08-26] MEDS ORDERED: Ondansetron PF 4 MG/2 ML Vial IVP PRN (22:51)
[2020-08-26] MEDS ORDERED: Ondansetron ODT 4 MG TAB PO PRN (22:51)
[2020-08-27 05:03] LABS: #Eosinphils 0.2 thou/uL (0.0-0.7); #Lymphocytes 2.7 thou/uL (1.20-3.40); #Monocytes 0.4 thou/uL (0.11-0.59); #Neutrophils 5.3 thou/uL (1.40-6.50); %Basophils 0.3 % (0.0-1.0); %Eosinophils 2.4 % (0.0-10.0); %Lymphocytes 31.6 % (21.0-51.0); %Neutrophils 60.7 % (42.0-75.0); Mean Corpuscular HGB CONC 34.3 g/dL (32.0-36.0); Mean Corpuscular Hemoglobin 30.7 pg (27.0-31.0); Mean Corpuscular Volume 89.6 fL (78.0-98.0); Mean Platelet Volume 7.8 fL (7.4-10.4); Platelet Count 196 thou/uL (130-400); Red Blood Cell (RBC) Count 4.55 mill/uL (4.20-5.40); White Blood Cell (WBC) Count 8.6 thou/uL (4.8-10.8)
[2020-08-27 05:28] LABS: Anion Gap 13 mmol/L (10-20); BUN (Urea Nitrogen) 11 mg/dL (7.0-18.7); Calc. Creatinine Clearance 137 mL/min (70-130); Calcium 9.2 mg/dL (7.8-10.44); Carbon Dioxide 20 mmol/L (22-29); Chloride 110 mmol/L (98-107); Cholesterol 117 mg/dl (< 200 Desired); Glucose 95 mg/dL (70-105); HDL Cholesterol 39 mg/dL (>60 Neg Risk); LDL Cholesterol, Calculated 47 mg/dL; Potassium 3.6 mmol/L (3.5-5.1); Sodium 139 mmol/L (136-145); Triglycerides 153 mg/dL (Less than 150)
[2020-08-27] MEDS ORDERED: Losartan 25 MG TAB PO SCH (09:00)
[2020-08-27] MEDS ORDERED: TICAGRELOR 90 MG TABLET PO SCH (09:00)
[2020-08-27] MEDS ORDERED: Aspirin 81 mg Enteric Coated Tablet PO SCH (09:00)
[2020-08-27] MEDS ORDERED: levETIRAcetam 500 MG TAB PO SCH (09:00)
[2020-08-27 11:52] LABS: SARS-CoV-2 PCR NAA for Saliva Not Detected (NotDetected)
[2020-08-27 15:46] VITALS: BP 140/95; TEMP 98.3
[2020-08-27] MEDS ORDERED: Folic Acid 1 MG TAB PO SCH (21:00)
[2020-08-27] MEDS ORDERED: Venlafaxine HCl XR 75 MG CAP PO SCH (21:00)
[2020-08-27] MEDS ORDERED: Atorvastatin Calcium 40 MG TAB PO SCH ×2 (21:00)
== END 2020-08-27 18:18 | disposition home or self-care (01) | DRG 69 ==
LOC: ERS 15:41 → 2SE 16:56
PROVIDERS: ADMIT Internal Medicine; ATTEND Internal Medicine
DX: G45.9 Transient cerebral ischemic attack, unspecified (principal); Z20.822 Contact with and (suspected) exposure to COVID-19; E78.5 Hyperlipidemia, unspecified; I66.3 Occlusion and stenosis of cerebellar arteries; R29.810 Facial weakness; I10 Essential (primary) hypertension; E11.9 Type 2 diabetes mellitus without complications; Z79.82 Long term (current) use of aspirin; Z88.8 Allergy status to other drugs, medicaments and biological substances; Z79.899 Other long term (current) drug therapy; Z98.51 Tubal ligation status; Z90.49 Acquired absence of other specified parts of digestive tract
CPT/HCPCS: 36415; 36416; 70450; 70496; 70498; 70551; 80048; 80053; 80061; 84484; 85025; 85610; 85730; 87635; 93005; Q9967; U0003; U0005